=== PATIENT | male | born 1950 | race Caucasian/White ===

== ENCOUNTER → 2016-04-06 | Outpatient (CLI) | payer OTHER ==
[~2016-04-06] MED LIST: ASPIRIN81 M2 PO; CRESTOR5 MG PO; HYDROCODON-ACE1 EAC7 PO; LISINOPRIL20 MG PO; METFORMIN HCL500 MG PO; MULTIPLE VITAM1 EACH PO; PREVACID30 MG PO; TAMSULOSIN HCL0.4 MG PO; XALATAN2.5 ML BOTH EYES
== END | disposition home or self-care (01) ==
DX: M16.12 Unilateral primary osteoarthritis, left hip (principal); R26.2 Difficulty in walking, not elsewhere classified; M62.81 Muscle weakness (generalized); M25.652 Stiffness of left hip, not elsewhere classified
CPT/HCPCS: 97110 GP; 97150 GO; 97161 GP; 97165 GO; G8978 GP; G8979 GP; G8980 GP; G8987 GO; G8988 GO; G8989 GO

== ENCOUNTER 2016-04-19 05:40 | Inpatient (IN) | payer OTHER ==
[~2016-04-19] VITALS: Ht 172.7 cm; Wt 88.9 kg
[~2016-04-19 05:40] MED LIST changes: +IRON325 M1 PO; +PROTONIX40 MG PO
[2016-04-19 06:02] VITALS: BP 125/82
[2016-04-19 06:12] LABS: POINT-OF-CARE METER ID UU14174212
[2016-04-19 06:28] VITALS: BP 125/82
[2016-04-19 10:48] LABS: POINT-OF-CARE METER ID UU13113675
[2016-04-19 11:08] LABS: HEMATOCRIT 32.8 % (38.0-50.0); MCH 31.3 PG (29.0-34.0); MCHC 33.5 G/DL (30.0-36.0); MCV 93.2 FL (86-99); MEAN PLAT.VOLUME 8.8 uM^3 (9.0-12.4); PLATELET COUNT 101 K/uL (156-360); RBC DIS.WIDTH-SD 43.8 % (39-53); RED BLOOD COUNT 3.52 M/uL (4.00-5.50); WHITE BLOOD COUNT 7.4 K/uL (4.1-10.2)
[2016-04-19 12:29] VITALS: BP 105/63
[2016-04-19 12:38] LABS: ANION GAP 7 MEQ/L (2-14); CHLORIDE 107 MEQ/L (99-109); GFR ESTIMATE (CALCULATED) > 59 mL/min/; GLUCOSE 174 mg/dL (70-99); MAGNESIUM 1.5 mg/dl (1.3-2.7); SAMPLE HEMOLYSIS CHECK 0; SAMPLE ICTERIC CHECK 0; SAMPLE LIPEMIA CHECK 0; SODIUM 141 MEQ/L (136-147); UREA NITROGEN (BUN) 13 mg/dL (9-23)
[2016-04-19 14:01] LABS: TROP-I INTERPRETATION NEGATIVE; TROPONIN-I < 0.01 ng/mL (0.0-0.30)
[2016-04-19 14:19] VITALS: BP 153/54
[2016-04-19 16:00] VITALS: BP 125/62
[2016-04-19 17:08] LABS: POINT-OF-CARE METER ID UU13113712
[2016-04-19 20:02] VITALS: BP 103/57
[2016-04-19 22:02] LABS: POINT-OF-CARE METER ID UU13113712
[2016-04-20 00:13] VITALS: BP 112/62
[2016-04-20 04:21] VITALS: BP 118/65
[2016-04-20 05:41] LABS: TROP-I INTERPRETATION NEGATIVE; TROPONIN-I < 0.01 ng/mL (0.0-0.30)
[2016-04-20 05:44] LABS: ANION GAP 5 MEQ/L (2-14); CHLORIDE 102 MEQ/L (99-109); GFR ESTIMATE (CALCULATED) > 59 mL/min/; GLUCOSE 140 mg/dL (70-99); POTASSIUM 4.1 MEQ/L (3.7-5.4); SAMPLE HEMOLYSIS CHECK 0; SAMPLE ICTERIC CHECK 0; SAMPLE LIPEMIA CHECK 0; SODIUM 137 MEQ/L (136-147); UREA NITROGEN (BUN) 17 mg/dL (9-23)
[2016-04-20 06:13] LABS: INTER. NORMALIZED RATIO 1.2; PROTHROMBIN TIME 12.1 (9.2-11.2)
[2016-04-20 08:08] VITALS: BP 114/59
[2016-04-20 10:19] LABS: HEMATOCRIT 26.8 % (38.0-50.0); MCV 94.4 FL (86-99)
[2016-04-20 11:37] LABS: POINT-OF-CARE METER ID UU13113712
[2016-04-20 12:10] VITALS: BP 128/74
[2016-04-20 16:00] VITALS: BP 132/66
[2016-04-20 16:51] LABS: POINT-OF-CARE METER ID UU13113712
[2016-04-20 20:13] VITALS: BP 118/62
[2016-04-20 21:50] LABS: POINT-OF-CARE METER ID UU13113712
[2016-04-21 00:08] VITALS: BP 119/67
[2016-04-21 04:00] VITALS: BP 127/81
[2016-04-21 05:35] LABS: INTER. NORMALIZED RATIO 1.3; PROTHROMBIN TIME 13.8 (9.2-11.2)
[2016-04-21 07:57] LABS: POINT-OF-CARE METER ID UU13113712
[2016-04-21] MEDS ORDERED: PERCOCET 5/31 TABLET PO (07:59)
[2016-04-21] MEDS ORDERED: VISTARIL25 MG PO (07:59)
[2016-04-21] MEDS ORDERED: COUMADIN2.5 MG PO (07:59)
[2016-04-21 08:23] VITALS: BP 124/60
[2016-04-21 11:36] VITALS: BP 126/63
[2016-04-21 11:47] LABS: POINT-OF-CARE METER ID UU13113712
[2016-04-21] MEDS ORDERED: REGLAN5 MG PO ×2 (13:49→15:43)
[2016-04-21 14:51] VITALS: BP 123/57
== END 2016-04-21 16:20 | disposition home health service (06) | DRG 470 ==
LOC: 2SOUTH 05:40 → 3WEST 11:48 → 2SOUTH 14:06 → 3WEST 04-21 16:20
PROVIDERS: Hospitalist; Internal Medicine Cardiovascular Disease; Orthopaedic Surgery
PROC: 0SRB02A Replacement of Left Hip Joint with Metal on Polyethylene Synthetic Substitute, Uncemented, Open Approach (ICD-10-PCS; principal; 2016-04-19)
DX: M16.12 Unilateral primary osteoarthritis, left hip (principal); Q79.6 Ehlers-Danlos syndromes; J98.11 Atelectasis; I49.3 Ventricular premature depolarization; I10 Essential (primary) hypertension; E11.9 Type 2 diabetes mellitus without complications; L57.0 Actinic keratosis; K21.9 Gastro-esophageal reflux disease without esophagitis; R35.0 Frequency of micturition; D50.9 Iron deficiency anemia, unspecified; D69.6 Thrombocytopenia, unspecified; M54.16 Radiculopathy, lumbar region; Z96.651 Presence of right artificial knee joint; G47.33 Obstructive sleep apnea (adult) (pediatric); I45.5 Other specified heart block; I95.9 Hypotension, unspecified
CPT/HCPCS: 71010; 71020; 80048; 82948; 83735; 84484; 85014; 85018; 85027; 85610; 93005; 97530 GP; J0295; J0690; J1170; J1200; J1652; J1815; J2250; J2405; J7050; J7120